=== PATIENT | female | born 1960 | race Caucasian/White ===

== ENCOUNTER → 2016-08-21 | Outpatient (CLI) | payer OTHER | END | disposition short-term general hospital (02) | LOC: CLORTH 10:00 | DX: Z47.89 Encounter for other orthopedic aftercare (principal) ==

== ENCOUNTER → 2016-09-02 | Outpatient (CLI) | payer OTHER | END | disposition short-term general hospital (02) | LOC: CLCARD 08:45 | DX: R42 Dizziness and giddiness (principal) ==

== ENCOUNTER → 2016-09-16 | Outpatient (CLI) | payer OTHER | END | disposition short-term general hospital (02) | LOC: CLCARD 08:48 | DX: R42 Dizziness and giddiness (principal); J45.990 Exercise induced bronchospasm; F32.9 Major depressive disorder, single episode, unspecified ==

== ENCOUNTER → 2016-11-13 | Outpatient (CLI) | payer OTHER | END | disposition short-term general hospital (02) | LOC: CLNEUR 07:49 | DX: R42 Dizziness and giddiness (principal); R90.81 Abnormal echoencephalogram ==